=== PATIENT | male | born 2000 | race Asian ===

== ENCOUNTER 2024-05-26 22:28 | Emergency (ER) | payer SELFPAY ==
[~2024-05-26] VITALS: Ht 177.8 cm; Wt 77.3 kg
[2024-05-26 22:35] VITALS: PULSE 73; RESP 16; O2SAT 97
[2024-05-26 23:17] VITALS: TEMP 97.4
== END 2024-05-26 23:21 | disposition home or self-care (01) ==
LOC: ER 22:30
DX: S71.011A Laceration without foreign body, right hip, initial encounter (principal); W01.0XXA Fall on same level from slipping, tripping and stumbling without subsequent striking against object, initial encounter; Y93.89 Activity, other specified; Y92.89 Other specified places as the place of occurrence of the external cause; Y99.8 Other external cause status
CPT/HCPCS: 12002; 99284

== ENCOUNTER 2024-05-30 20:45 | Emergency (ER) | payer MEDICAID ==
[~2024-05-30] VITALS: Ht 180.3 cm; Wt 85.0 kg
[2024-05-30] MEDS ORDERED: NEOM1OIN8 TOP (21:07)
[2024-05-30] MEDS: bacitracin 15gm ointment TP ONE (21:26)
[2024-05-30 21:29] VITALS: BP 110/50; PULSE 75; RESP 16; TEMP 98.3; O2SAT 99
== END 2024-05-30 21:29 | disposition home or self-care (01) ==
LOC: ER 20:46
DX: S71.011A Laceration without foreign body, right hip, initial encounter (principal); X58.XXXA Exposure to other specified factors, initial encounter; Y93.89 Activity, other specified; Y92.89 Other specified places as the place of occurrence of the external cause; Y99.8 Other external cause status
CPT/HCPCS: 99282; 99283